=== PATIENT | female | born 1980 | race Caucasian/White ===

== ENCOUNTER → 2017-03-30 | Outpatient (CLI) | payer OTHER ==
[~2017-03-30] MED LIST: LEVA15HF2 IH; LEVO25TA2 PO; THYR90TA PO
== END | disposition home or self-care (01) ==
LOC: CFH 08:26
PROVIDERS: ATTEND Student in an Organized Health Care Education/Training Program
DX: N64.4 Mastodynia (principal); N60.19 Diffuse cystic mastopathy of unspecified breast
CPT/HCPCS: 76642; G0204

== ENCOUNTER 2017-11-29 13:46 | Emergency (ER) | payer OTHER ==
[~2017-11-29] VITALS: Ht 165.1 cm; Wt 97.7 kg
[~2017-11-29 13:46] MED LIST changes: -LEVA15HF2 IH; +LEVA15HF4 IH
[2017-11-29 13:47] VITALS: BP 115/74
[2017-11-29] MEDS ORDERED: FAMOTIDINE 20 MG TABLET PO ONE (14:00)
[2017-11-29] MEDS ORDERED: DIPHENHYDRAMINE 25 MG CAPSULE PO ONE (14:00)
[2017-11-29] MEDS ORDERED: DIPHENHYDRAMINE 25 MG CAPSULE ONE (14:14)
[2017-11-29] MEDS ORDERED: FAMOTIDINE 20 MG TABLET ONE (14:15)
== END 2017-11-29 15:30 | disposition home or self-care (01) ==
LOC: ED 15:19
DX: R21 Rash and other nonspecific skin eruption (principal); F41.1 Generalized anxiety disorder; J45.909 Unspecified asthma, uncomplicated
CPT/HCPCS: 99284; J7512; Q0163